=== PATIENT | female | born 1960 | race Caucasian/White ===

== ENCOUNTER → 2016-10-30 | Outpatient (CLI) | payer BC ==
--- NOTE | 2016-10-30 11:23 | Diagnostic Imaging Report ---
INDICATION: Left hand injury with swelling. FINDINGS: AP, oblique and lateral views of the left hand are obtained. No acute fracture or malalignment is identified. There is mild subluxation of the first metacarpophalangeal joint may be due to ligamentous laxity. There is no evidence of abnormal lytic or sclerotic focus. No definite erosion is seen. IMPRESSION: No acute abnormality is identified. Subluxation at the first metacarpophalangeal joint may be due to ligamentous instability. Dictated by: Dictated on workstation # [id number]
== END ==
LOC: RAD 09:46
PROVIDERS: ATTEND Family Medicine
DX: M79.642 Pain in left hand (principal)
CPT/HCPCS: 73130

== ENCOUNTER → 2022-11-03 | Outpatient (CLI) | payer BC, OTHER ==
--- NOTE | 2022-11-03 11:09 | Diagnostic Imaging Report ---
PROCEDURE: MRI lumbar spine. TECHNIQUE: Multiplanar, multisequence MRI of the lumbar spine was performed without contrast. INDICATION: Back pain and right buttock pain EXAMINATION: Lumbar spine MRI without contrast 11/03/2012 FINDINGS: Grade 1 anterolisthesis noted at L4-L5. Remaining alignment is maintained. Tip of the conus unremarkable in appearance and location. L1-L2: There is bilateral facet and omentum flavum hypertrophy. There is no central stenosis. There is moderate bilateral neural foraminal narrowing. L2-L3: There is minimal broad-based bulging and disc material. There is bilateral facet and ligament flavum hypertrophy. There is mild central narrowing. There is moderate to severe bilateral neural foraminal stenosis. L3-L4: There is disc desiccation with a mild broad-based bulging disc. There is bilateral facet and ligamentum flavum hypertrophy. There is no significant central stenosis however mild left lateral recess narrowing is noted. There is severe bilateral neural foraminal narrowing L4-L5: There is intervertebral disc space narrowing and disc desiccation. There is bilateral facet and ligamentum flavum hypertrophy. There is a left paracentral broad-based bulging disc. Findings cause near severe central stenosis with marked narrowing of the lateral recesses left worse than right. There is severe bilateral neural foraminal stenosis right worse than left. L5-S1: There is intervertebral disc space narrowing and disc desiccation. There is bilateral facet and ligamentum flavum hypertrophy. There is a broad-based bulging disc containing an annular tear. Cystic changes posterior to bilateral facets consistent with synovial cyst. Findings cause moderate central stenosis with narrowing of the lateral recesses bilaterally. There is severe bilateral neural foraminal stenosis. There is focal edema extending along the posterior superior endplate at L5 which extends into the adjacent pedicles and facets likely on a degenerative basis. Visualized intra-abdominal structures unremarkable for acute abnormality. IMPRESSION: 1. Multilevel degenerative findings as detailed above causing near severe central stenosis at the L4-L5 level with moderate central stenosis at L5-S1. Multilevel moderate to severe neural foraminal narrowing noted. See above discussion for detailed description of each level. Dictated by: Dictated on workstation # [id number]
== END ==
LOC: RAD 08:59
PROVIDERS: ATTEND Family Medicine
DX: M54.17 Radiculopathy, lumbosacral region (principal); M48.07 Spinal stenosis, lumbosacral region; M89.38 Hypertrophy of bone, other site; M48.061 Spinal stenosis, lumbar region without neurogenic claudication; M24.28 Disorder of ligament, vertebrae; M51.36 Other intervertebral disc degeneration, lumbar region
CPT/HCPCS: 72148

== ENCOUNTER 2023-08-06 09:33 | Emergency (ER) | payer OTHER ==
[~2023-08-06] VITALS: Ht 152 cm; Wt 51.0 kg
[2023-08-06 09:56] LABS: BASOPHILS # (AUTO) 0.1 10^3/uL (0.0-0.1); BASOPHILS % (AUTO) 1 % (0-10); EOSINOPHILS # (AUTO) 0.2 10^3/uL (0.0-0.3); EOSINOPHILS % (AUTO) 2 % (0-10); HEMATOCRIT 44 % (35-52); LYMPHOCYTES # (AUTO) 3.5 10^3/uL (1.0-4.0); LYMPHOCYTES % (AUTO) 32 % (12-44); MEAN CORPUSCULAR HEMOGLOBIN 33 pg (25-34); MEAN CORPUSCULAR HGB CONC 34 g/dL (32-36); MEAN CORPUSCULAR VOLUME 95 fL (80-99); MEAN PLATELET VOLUME 10.1 fL (9.0-12.2); MONOCYTES # (AUTO) 0.7 10^3/uL (0.0-1.0); MONOCYTES % (AUTO) 7 % (0-12); NEUTROPHILS # (AUTO) 6.5 10^3/uL (1.8-7.8); NEUTROPHILS % (AUTO) 59 % (42-75); PLATELET COUNT 288 10^3/uL (130-400); WHITE BLOOD COUNT 11.1 10^3/uL (4.3-11.0)
[2023-08-06] MEDS ORDERED: HOLD METFORMIN - RECEIVED CONTRAST 20 ML VIAL IV SCH (10:00)
[2023-08-06] MEDS ORDERED: NS 100 ML (IVPB) BAG IV ONE (10:00)
[2023-08-06] MEDS ORDERED: IOHEXOL 350 MG/ML 100 ML (OMNIPAQUE 350) VIAL IV ONE (10:00)
[2023-08-06 10:07] LABS: ALBUMIN 4.6 GM/DL (3.2-4.5)
--- NOTE | 2023-08-06 10:07 | Diagnostic Imaging Report ---
INDICATION: Hypertension. FINDINGS: The heart size, mediastinal configuration, and pulmonary vascularity are within normal limits. There is no pleural effusion, pneumothorax, or pneumonia. The osseous structures are unremarkable. IMPRESSION: No acute cardiopulmonary abnormality. Dictated by: Dictated on workstation # [id number]
[2023-08-06 10:08] LABS: CHLORIDE 108 MMOL/L (98-107); INR 0.9 (0.8-1.4); POTASSIUM 3.5 MMOL/L (3.6-5.0); PROTHROMBIN TIME PATIENT 12.7 SEC (12.2-14.7); SODIUM 140 MMOL/L (135-145)
[2023-08-06 10:10] LABS: GLUCOSE 103 MG/DL (70-105); TOTAL PROTEIN 8.1 GM/DL (6.4-8.2)
[2023-08-06 10:11] LABS: CARBON DIOXIDE 21 MMOL/L (21-32); FIBRIN DEGRADATION PRODUCTS 0.4 UG/ML (0.00-0.49)
[2023-08-06 10:12] LABS: BILIRUBIN,TOTAL 0.6 MG/DL (0.1-1.0)
[2023-08-06 10:14] LABS: ALKALINE PHOSPHATASE 94 U/L (40-136); CREATININE SERUM 0.77 MG/DL (0.60-1.30); GFR ESTIMATED 88
[2023-08-06 10:15] LABS: BUN/CREATININE RATIO 8
[2023-08-06 10:17] LABS: ALANINE AMINOTRANSFERASE 16 U/L (0-55)
--- NOTE | 2023-08-06 10:21 | Diagnostic Imaging Report ---
CLINICAL INDICATION: Patient with right-sided weakness and leaning and headache and hypertension. EXAM: Axial CT scan of the brain performed without IV contrast. High-resolution axial CT brain images with sagittal and coronal reformations were also created. Auto Exposure Controls were utilized during the CT exam to meet ALARA standards for radiation dose reduction. COMPARISON: Head CT without contrast dated 08/06/2023. FINDINGS: There is no evidence of acute cerebral infarct, intracranial hemorrhage, or gross mass effect. There is no dense vessel sign. The brain parenchymal volume appears appropriate for patient's age. Stable small area of low-density involving the right frontal lobe subcortical white matter which may be related to chronic ischemic changes. There is normal floyd-white matter distinction. There is no significant midline shift or herniation. There is no evidence of hydrocephalus. The basal cisterns are unremarkable. The skull, extracranial soft tissue, and orbits are unremarkable. The paranasal sinuses are unremarkable. Temporal bones show no significant abnormality. IMPRESSION: Stable CT scan of the brain with no interval evidence of acute intracranial process. There is no dense vessel sign. Results of this report discussed with Dr. Adan Hummel via the telephone on 08/06/2023 at 1015 hours. Dictated by: Dictated on workstation # [id number]
--- NOTE | 2023-08-06 10:25 | Diagnostic Imaging Report ---
Clinical indication: Patient with right-sided weakness remaining, headache and hypertension. Exams: 1: Head CT with and without IV contrast. Auto Exposure Controls were utilized during the CT exam to meet ALARA standards for radiation dose reduction. 2: CT angiogram of the head and neck performed with 100 cc of Omnipaque 350 IV contrast. Sagittal and coronal MIP reformations were created for better visualization of vascular anatomy. CT angiogram was post-processed using RAPID LVO detection to include quantitative measurements of cerebral blood flow and automated results notification to the stroke and/or neurointerventional team. Comparison: Head CT without contrast dated 08/06/2023. Findings: Head CT: Stable appearance of the brain parenchyma with no interval acute intracranial process. There is no intracranial hemorrhage and there is no abnormal IV contrast enhancement. Stable small vessel ischemic disease. The remainder of this exam shows no significant interval change compared to the prior study of comparison. CT ANGIOGRAM: There is dense contrast bolus within left subclavian vein, innominate vein and superior vena cava which causes streak artifact obscuring portions of the aortic arch and proximal great vessels. Three-vessel aortic arch is seen. The brachiocephalic artery and bilateral subclavian arteries are patent. The right common carotid artery, cervical right ICA and right ECA are patent. The left common carotid artery, left ECA and cervical left ICA are patent. The petrous, cavernous, and supraclinoid ICA are patent. The bilateral ACAs and distal branches are patent. The bilateral ACAs and distal branches are patent. The bilateral MCAs and distal branches are patent. The bilateral cervical vertebral arteries are patent. The intradural bilateral vertebral arteries and bilateral membership sales representative and distal branches are patent. Bilateral superior cerebellar arteries, basilar artery, and intradural vertebral arteries are patent. The bilateral cervical vertebral arteries are patent and codominant. Dural venous sinuses are patent. Centrilobular emphysema is seen. There are multiple subcentimeter right thyroid lobe nodules. There is a 6 mm nodule involving the right thyroid lobe. Otherwise remainder of the neck soft tissue structures are unremarkable. IMPRESSION: 1: Stable CT scan of the brain with no interval evidence of acute intracranial process. 2: CT angiogram of the [place] and neck shows no large vessel occlusion or intravascular thrombus. There is no significant stenosis, aneurysm, or vascular malformation. 3: There is a 6 mm nodule involving the right thyroid lobe. Nonemergent thyroid ultrasound is suggested for further evaluation. Results of this report were discussed with Dr. Adan Hummel via the telephone on 08/06/2023 at 1015 hours. Dictated by: Dictated on workstation # [id number]
--- NOTE | 2023-08-06 10:28 | ED Neurological Problem ---
General Chief Complaint: Neuro-Stroke Like Symptoms Stated Complaint: STROKE-LIKE SYMPTOMS Nursing Triage Note: PT AMB TO [facility] WITH C/O STROKE LIKE SYMPTOMS THIS MORNING. PT HAS NOTICED HER BP ELEVATED THE LAST FEW DAYS, [place], R SIDE WEAKNESS AND FALLING TO THE RIGHT THIS MORNING. PT DENIES ALL SYMPTOMS ON ARRIVAL Source: patient Exam Limitations: no limitations History of Present Illness Date Seen by Provider: Aug 06, 2023 Time Seen by Provider: 09:38 Initial Comments This is a 62-year-old woman presents to the emergency room by private vehicle with complaints of slurred speech and right-sided weakness that was noted around 0830. Her last known well time was approximately 0300 when she laid down for bed. She got up at some point between 0400 and 0430 and thought herself to be normal at that time. However, since she was not speaking with anyone at that time and one of her complaints was slurred speech, 0300 should be considered her last known well time. She is accompanied by family on arrival. She is without neurologic deficits on arrival and ambulates into the ER without difficulty on her own power. She reports problems with recent headaches and hypertension as well as some tingling in her distal extremities. She has had hypertensive blood pressure measurements at home which have been ranging from 131/85 up to 191/107. She then had a more marked blood pressure of 210/117 this morning. She has had a platelet with Dr. Gustafson later this morning for her hypertension. She has history of cervical and lumbar spinal stenosis with MRI studies on file in our record. She has no history of stroke. She is a smoker and admits to occasional marijuana use. She denies any alcohol use. Allergies and Home Medications Allergies Coded Allergies: No Known Drug Allergies (Unverified , 08/06/23) Patient Home Medication List Home Medication List Reviewed: Yes Amlodipine Besylate (Amlodipine Besylate) 5 Mg Tablet, 5 MG PO DAILY Prescribed by: ADAN HUMMEL on 08/06/23 1259 Aspirin (Aspirin EC) 81 Mg Tablet.dr, 81 MG PO DAILY Prescribed by: ADAN HUMMEL on 08/06/23 1259 Clopidogrel Bisulfate (Plavix) 75 Mg Tablet, 75 MG PO DAILY Prescribed by: ADAN HUMMEL on 08/06/23 1259 Review of Systems Review of Systems Constitutional: no symptoms reported Eyes: No Symptoms Reported Ears, Nose, Mouth, Throat: no symptoms reported Respiratory: no symptoms reported Cardiovascular: no symptoms reported Gastrointestinal: no symptoms reported Genitourinary: no symptoms reported : No Musculoskeletal: no symptoms reported Skin: no symptoms reported Psychiatric/Neurological: See HPI Endocrine: No Symptoms Reported Hematologic/Lymphatic: No Symptoms Reported Past Xhjkizs-Ldhzai-Zifiqn Hx Patient Social History Tobacco Use?: Yes Tobacco type used: Cigarettes Substance use?: Yes Substance type: Marijuana Alcohol Use?: No Pt feels they are or have been: No Past Medical History Surgery/Hospitalization HX: [facility] Surgeries: Yes Gallbladder Respiratory: No Cardiac: Yes Hypertension Neurological: Yes (Lumbar and cervical spinal stenosis) Genitourinary: No Gastrointestinal: No Musculoskeletal: Yes (Degenerative disc disease, lumbar and cervical spinal stenosis) Endocrine: No HEENT: No Cancer: No Psychosocial: No Integumentary: Yes (Lichen planus) Physical Exam Vital Signs Vital Signs - First Documented 08/06/23 09:38 Temp 37.0 Pulse 116 Resp 20 B/P (MAP) 216/121 (152) Pulse Ox 95 O2 Delivery Room Air Capillary Refill : Height, Weight, BMI Height: '" Weight: lbs. oz. kg; 22.00 BMI Method: General Appearance: WD/WN, no apparent distress, thin HEENT: PERRL/EOMI, normal ENT inspection Neck: normal inspection Respiratory: lungs clear, normal breath sounds, no respiratory distress Cardiovascular: no edema, no murmur, tachycardia (Regular) Gastrointestinal: non tender, soft; No distended Extremities: non-tender, normal inspection, no pedal edema Neurologic/Psychiatric: lead sprinkler II-XII nml as tested, no motor/sensory deficits, alert, normal mood/affect, oriented x 3 [place] Nerves: normal hearing, normal speech Coordination/Gait: normal gait Motor/Sensory: no motor deficit, no sensory deficit Skin: normal color, warm/dry Stroke Onset of Symptoms Date of Onset of Symptoms: Aug 06, 2023 Time of Symptom Onset: 08:30 (LKWT 03:00) NIH Stroke Scale Assessment Level of Consciousness: 0=Alert (0), Level of Consciousness-Questions: 0=Answers both month/age (0), LOC Commands: 0=Performs both tasks (0), Visual Cisse: 0=No visual loss (0), Facial Movement (Facial Paresis): 0=Normal symmetrical mnt (0), Motor Function-Arms Right: 0=No drift (0), Motor Function-Arms Left: 0=No drift (0), Motor Function-Legs Right: 0=No drift (0), Motor Function-Legs Left: 0=No drift (0), Limb Ataxia: 0=Absent (0), Sensory: 0=Normal:no loss (0), Best Language: 0=No aphasia (0), Dysarthria: 0=Normal (0), Extinction & Inattention: 0=No abnormality (0), Total: 0 Progress/Results/Core Measures Results/Orders Lab Results Laboratory Tests Test 08/06/23 09:43 08/06/23 09:45 08/06/23 10:30 Range/Units White Blood Count 11.1 H 4.3-11.0 10^3/uL Red Blood Count 4.62 3.80-5.11 10^6/uL Hemoglobin 15.0 11.5-16.0 g/dL Hematocrit 44 35-52 % Mean Corpuscular Volume 95 80-99 fL Mean Corpuscular Hemoglobin 33 25-34 pg Mean Corpuscular Hemoglobin Concent 34 32-36 g/dL Red Cell Distribution Width 14.0 10.0-14.5 % Platelet Count 288 130-400 10^3/uL Mean Platelet Volume 10.1 9.0-12.2 fL Immature Granulocyte % (Auto) 0 % Neutrophils (%) (Auto) 59 42-75 % Lymphocytes (%) (Auto) 32 12-44 % Monocytes (%) (Auto) 7 0-12 % Eosinophils (%) (Auto) 2 0-10 % Basophils (%) (Auto) 1 0-10 % Neutrophils # (Auto) 6.5 1.8-7.8 10^3/uL Lymphocytes # (Auto) 3.5 1.0-4.0 10^3/uL Monocytes # (Auto) 0.7 0.0-1.0 10^3/uL Eosinophils # (Auto) 0.2 0.0-0.3 10^3/uL Basophils # (Auto) 0.1 0.0-0.1 10^3/uL Immature Granulocyte # (Auto) 0.0 0.0-0.1 10^3/uL Prothrombin Time 12.7 12.2-14.7 SEC INR Comment 0.9 0.8-1.4 Activated Partial Thromboplast Time 34 24-35 SEC D-Dimer 0.40 0.00-0.49 UG/ML Sodium Level 140 135-145 MMOL/L Potassium Level 3.5 L 3.6-5.0 MMOL/L Chloride Level 108 H 98-107 MMOL/L Carbon Dioxide Level 21 21-32 MMOL/L Anion Gap 11 5-14 MMOL/L Blood Urea Nitrogen 6 L 7-18 MG/DL Creatinine 0.77 0.60-1.30 MG/DL Estimat Glomerular Filtration Rate 88 BUN/Creatinine Ratio 8 Glucose Level 103 70-105 MG/DL Calcium Level 10.0 8.5-10.1 MG/DL Corrected Calcium 8.5-10.1 MG/DL Total Bilirubin 0.6 0.1-1.0 MG/DL Aspartate Amino Transf (AST/SGOT) 21 5-34 U/L Alanine Aminotransferase (ALT/SGPT) 16 0-55 U/L Alkaline Phosphatase 94 40-136 U/L Troponin I < 0.028 <0.028 NG/ML Total Protein 8.1 6.4-8.2 GM/DL Albumin 4.6 H 3.2-4.5 GM/DL Thyroid Stimulating Hormone (TSH) 1.30 0.35-4.94 UIU/ML Free Thyroxine 1.20 0.70-1.48 NG/DL Glucometer 104 70-110 MG/DL Urine Color YELLOW Urine Clarity CLEAR Urine pH 7.0 5-9 Urine Specific [place] 1.010 L 1.016-1.022 Urine Protein NEGATIVE NEGATIVE Urine Glucose (UA) NEGATIVE NEGATIVE Urine Ketones NEGATIVE NEGATIVE Urine Nitrite NEGATIVE NEGATIVE Urine Bilirubin NEGATIVE NEGATIVE Urine Urobilinogen 0.2 < = 1.0 MG/DL Urine Leukocyte Esterase NEGATIVE NEGATIVE Urine RBC (Auto) TRACE H NEGATIVE Urine RBC NONE /HPF Urine WBC NONE /HPF Urine Squamous Epithelial Cells RARE /HPF Urine Crystals NONE /LPF Urine Bacteria NEGATIVE /HPF Urine Casts NONE /LPF Urine Mucus NEGATIVE /LPF Urine Culture Indicated NO Urine Opiates Screen NEGATIVE NEGATIVE Urine Oxycodone Screen NEGATIVE NEGATIVE Urine Methadone Screen NEGATIVE NEGATIVE Urine Propoxyphene Screen NEGATIVE NEGATIVE Urine Barbiturates Screen NEGATIVE NEGATIVE Ur Tricyclic Antidepressants Screen NEGATIVE NEGATIVE Urine Phencyclidine Screen NEGATIVE NEGATIVE Urine Amphetamines Screen NEGATIVE NEGATIVE Urine Methamphetamines Screen NEGATIVE NEGATIVE Urine Benzodiazepines Screen POSITIVE H NEGATIVE Urine Cocaine Screen NEGATIVE NEGATIVE Urine Cannabinoids Screen POSITIVE H NEGATIVE My Orders Orders - ADAN TURCIOS MD Ekg Tracing (08/06/23 09:37) Cbc And Automated Diff (08/06/23 09:46) Protime With Inr (08/06/23 09:46) Partial Thromboplastin Time (08/06/23 09:46) Comprehensive Metabolic Panel (08/06/23:46) Fibrin Degradation Products (08/06/23:46) Troponin I [place] (08/06/23 09:46) Ua Culture If Indicated (08/06/23 09:46) Chest 1 View, Ap/Pa Only (08/06/23:46) Accucheck Stat ONCE (08/06/23 09:46) Ed Iv/Invasive Line Start (08/06/23 09:46) Ed Iv/Invasive Line Start (08/06/23 09:46) Vital Signs Stroke Patient Q15M (08/06/23 09:46) Ct Head Wo-R/O Stroke (08/06/23 09:46) O2 (08/06/23 09:46) Monitor-Rhythm Ecg Trace Only (08/06/23 09:46) Dysphagia Screening Tool Q10MX1 (08/06/23 09:46) Post Thrombolytic Adminstratio (08/06/23 09:46) Ct Angio Head/Neck (08/06/23 09:48) Iohexol Injection (Omnipaque 350 Mg/Ml 1 (08/06/23 10:00) Received Contrast (Hold Metformin- Contr (08/06/23 10:00) Ns (Ivpb) 100 Ml (Sodium Chloride 0.9% 1 (08/06/23 10:00) Mri Brain W/O Contrast (08/06/23 10:21) Drug Screen Stat (Urine) (08/06/23 10:34) Thyroid Stimulating Hormone (08/06/23 10:36) Free T4 (Free Thyroxine) (08/06/23 10:36) Clopidogrel Tablet (Clopidogrel Tablet) (08/06/23 13:00) Aspirin Enteric Coated Tablet (Ecotrin T (08/06/23 13:00) Amlodipine Tablet (Amlodipine Tablet) (08/06/23 13:00) Medications Given in ED Vital Signs/I&O 08/06/23 08/06/23 09:38 13:05 Temp 37.0 Pulse 116 84 Resp 20 18 B/P (MAP) 216/121 (152) 190/120 Pulse Ox 95 97 O2 Delivery Room Air Blood Pressure Mean: 152 FSBG Bedside Testing Finger Stick Blood Glucose: 104 Blood Glucose Action Taken: PROVIDER NOTIFIED Progress Progress Note #1: Time: 10:31 Progress Note Patient was promptly interviewed and examined upon arrival. Although she was not currently exhibiting neurologic symptoms aside from headache, she did have an event this morning concerning for TIA. Stroke activation was paged. I accompanied patient to CT scan and immediately reviewed noncontrast CT imaging. No acute abnormalities were appreciated. We proceeded with CT angiogram of the head and neck. No acute abnormalities were appreciated on CT angiogram by my interpretation. I also discussed with the radiologist and reviewed radiologist's report finding no critical stenoses or occlusion. Patient remains hypertensive with a present blood pressure of 168/111. Until determination of stroke has been made with MRI, I am not treating the hypertension. If stroke is found on MRI, permissive hypertension will be monitored. If MRI is negative, we will consider treating with antihypertensives for possible malignant hypertens ion. Labs have all been reviewed and interpreted by me. Labs were clinically unremarkable by my interpretation including CBC, CMP, troponin, D-dimer, and coagulation panel. Progress Note #2: Progress Note MRI demonstrated no acute abnormalities or pathologies to explain the symptoms. Event likely represented either TIA or malignant hypertension. I discuss with stroke neurologist at [facility]. ABCD2 score was 3. Admission to finish stroke evaluation was recommend. Dual antiplatelet therapy recommended for 3 weeks. Patient declined admission and acknowledged leaving AMA places her at greater risk for and disability. Rx provided. Patient signed AMA paper. See discharge instructions for further discussion. Initial ECG Impression Date: Aug 06, 2023 Initial ECG Impression Time: 09:44 Initial ECG Rate: 94 Initial ECG Rhythm: S.Tach Comment Borderline sinus tachycardia with no ST elevation or depression. No significant abnormal intervals. Possible left axis deviation or LVH. Diagnostic Imaging Diagonstic Imaging: Xray Plain Films/CT/US/NM/MRI: chest Comments NAME: RICKYPiedadANDREA D MED REC#: [id number] PT STATUS: REG ER : 1960 PHYSICIAN: ADAN TURCIOS MD ADMIT DATE: 08/06/23/ER Signed Date of Exam:08/06/23 CHEST 1 VIEW, AP/PA ONLY INDICATION: Hypertension. FINDINGS: The heart size, mediastinal configuration, and pulmonary vascularity are within normal limits. There is no pleural effusion, pneumothorax, or pneumonia. The osseous structures are unremarkable. IMPRESSION: No acute cardiopulmonary abnormality. Dictated by: Dictated on workstation # [id number] Dict: 08/06/23 1005 Trans: 08/06/23 1009 PERRY [id number] Interpreted by: SABINE DONALDSON MD Electronically signed by: SABINE DONALDSON MD 08/06/23 1009 Diagonstic Imaging: CT Plain Films/CT/US/NM/MRI: head Comments NAME: ANDREA WILKERSON [facility] REC#: [id number] PT STATUS: REG ER : 1960 PHYSICIAN: ADAN TURCIOS MD ADMIT DATE: 08/06/23/ER Draft Date of Exam:08/06/23 CT HEAD WO-R/O STROKE CLINICAL INDICATION: Patient with right-sided weakness and leaning and headache and hypertension. EXAM: Axial CT scan of the brain performed without IV contrast. High-resolution axial CT brain images with sagittal and coronal reformations were also created. Auto Exposure Controls were utilized during the CT exam to meet ALARA standards for radiation dose reduction. COMPARISON: Head CT without contrast dated 08/06/2023. FINDINGS: There is no evidence of acute cerebral infarct, intracranial hemorrhage, or gross mass effect. There is no dense vessel sign. The brain parenchymal volume appears appropriate for patient's age. Stable small area of low-density involving the right frontal lobe subcortical white matter which may be related to chronic ischemic changes. There is normal floyd-white matter distinction. There is no significant midline shift or herniation. There is no evidence of hydrocephalus. The basal cisterns are unremarkable. The skull, extracranial soft tissue, and orbits are unremarkable. The paranasal sinuses are unremarkable. Temporal bones show no significant abnormality. IMPRESSION: Stable CT scan of the brain with no interval evidence of acute intracranial process. There is no dense vessel sign. Results of this report discussed with Dr. Adan Hummel via the telephone on 08/06/2023 at 1015 hours. Dictated on workstation # [id number] Dict: 08/06/23 1006 Trans: 08/06/23 1021 [id number] Interpreted by: NARINDER JACK MD Diagonstic Imaging: CT Plain Films/CT/US/NM/MRI: other (Angiogram head and neck) Comments NAME: ANDREA WILKERSON [facility] REC#: [id number] PT STATUS: REG ER : 1960 PHYSICIAN: ADAN TURCIOS MD ADMIT DATE: 08/06/23/ER Draft Date of Exam:08/06/23 CT ANGIO HEAD/NECK Clinical indication: Patient with right-sided weakness remaining, headache and hypertension. Exams: 1: Head CT with and without IV contrast. Auto Exposure Controls were utilized during the CT exam to meet ALARA standards for radiation dose reduction. 2: CT angiogram of the head and neck performed with 100 cc of Omnipaque 350 IV contrast. Sagittal and coronal MIP reformations were created for better visualization of vascular anatomy. CT angiogram was post-processed using RAPID LVO detection to include quantitative measurements of cerebral blood flow and automated results notification to the stroke and/or neurointerventional team. Comparison: Head CT without contrast dated 08/06/2023. Findings: Head CT: Stable appearance of the brain parenchyma with no interval acute intracranial process. There is no intracranial hemorrhage and there is no abnormal IV contrast enhancement. Stable small vessel ischemic disease. The remainder of this exam shows no significant interval change compared to the prior study of comparison. CT ANGIOGRAM: There is dense contrast bolus within left subclavian vein, innominate vein and superior vena cava which causes streak artifact obscuring portions of the aortic arch and proximal great vessels. Three-vessel aortic arch is seen. The brachiocephalic artery and bilateral subclavian arteries are patent. The right common carotid artery, cervical right ICA and right ECA are patent. The left common carotid artery, left ECA and cervical left ICA are patent. The petrous, cavernous, and supraclinoid ICA are patent. The bilateral ACAs and distal branches are patent. The bilateral ACAs and distal branches are patent. The bilateral MCAs and distal branches are patent. The bilateral cervical vertebral arteries are patent. The intradural bilateral vertebral arteries and bilateral [place] tender and distal branches are patent. Bilateral superior cerebellar arteries, basilar artery, and intradural vertebral arteries are patent. The bilateral cervical vertebral arteries are patent and codominant. Dural venous sinuses are patent. Centrilobular emphysema is seen. There are multiple subcentimeter right thyroid lobe nodules. There is a 6 mm nodule involving the right thyroid lobe. Otherwise remainder of the neck soft tissue structures are unremarkable. IMPRESSION: 1: Stable CT scan of the brain with no interval evidence of acute intracranial process. 2: CT angiogram of the [place] and neck shows no large vessel occlusion or intravascular thrombus. There is no significant stenosis, aneurysm, or vascular malformation. 3: There is a 6 mm nodule involving the right thyroid lobe. Nonemergent thyroid ultrasound is suggested for further evaluation. Results of this report were discussed with Dr. Adan Hummel via the telephone on 08/06/2023 at 1015 hours. Dictated on workstation # [id number] Dict: 08/06/23 1009 Trans: 08/06/23 1025 [id number] [id number] Interpreted by: NARINDER JACK MD Diagonstic Imaging: MRI Plain Films/CT/US/NM/MRI: head Comments NAME: ANDREA WILKERSON [facility] REC#: [id number] PT STATUS: REG ER : 1960 PHYSICIAN: ADAN TURCIOS MD ADMIT DATE: 08/06/23/ER Signed Date of Exam:08/06/23 MRI BRAIN W/O CONTRAST CLINICAL INDICATION: Patient with stroke-like symptoms. Patient with right-sided weakness, headache, and hypertension. EXAM: MRI of the brain performed without IV contrast. Sequences include axial DWI, ADC map, axial T1, axial T2, axial FLAIR, axial gradient echo, and sagittal T1. COMPARISON: CT angiogram of the head/neck dated 08/06/2023. FINDINGS: There is no evidence of acute cerebral infarct, intracranial hemorrhage, or gross mass effect. There is a small area of T2 shine-through involving the posterior left frontal lobe dow radiata region. There is no evidence of diffusion restriction seen on this exam. There are multiple focal and patchy areas of high T2 signal white matter changes involving both cerebral hemispheres, periventricular regions, and robles, likely related to chronic small vessel ischemic disease. The brain parenchymal volume appears appropriate for patient's age. There is normal floyd-white matter distinction. There is no significant midline shift or herniation. The visualized [place] vascular structures are unremarkable. The pituitary gland, sella, and suprasellar regions are unremarkable as visualized. There is no evidence of hydrocephalus. The basal cisterns are unremarkable. The skull, extracranial soft tissue, and orbits are unremarkable. The paranasal sinuses are unremarkable. Temporal bones show no significant abnormality. IMPRESSION: 1: There is no evidence of acute intracranial process. 2: There are age-related brain parenchymal changes including chronic small vessel ischemic disease. Dictated by: Dictated on workstation # [id number] Dict: 08/06/23 1140 Trans: 08/06/23 1213 [id number] Interpreted by: NARINDER JACK MD Electronically signed by: NARINDER JACK MD 08/06/[address] Read Date: Aug 06, 2023 CT Read Time: 09:41 CT Results/Progress Notes CT was immediately read by me at 0941. No acute abnormalities were appreciated. Report was later received by the radiologist confirming no acute findings. Departure Impression Primary Impression: Hypertensive emergency Additional Impressions: Right sided weakness Left against medical advice Slurred speech Disposition: 07 AGAINST MEDICAL ADVICE Condition: Against Medical Advice Departure-Patient Inst. Decision time for Depature: 12:54 Referrals: ISAIAS GUSTAFSON MD (PCP/Family) Primary Care Physician Patient Instructions: Leaving Against Medical Advice, Malignant Hypertension, Transient Ischemic Attack (DC) Add. Discharge Instructions: It is unclear if you had strokelike symptoms due to severe high blood pressure or if you had severe high blood pressure in response to a TIA (transient ischemic attack). Admission to the hospital was recommended. Declining admission to the hospital places you at risk for more severe health consequences should your symptoms worsen. Consequences of declining admission could include or permanent disability. Avoid things that could worsen your blood pressure such as excessive salt, unnecessarily stressful situations, decongestant medications, excessive ca ffeine, diet pills, medications for ADHD, smoking, other nicotine, etc. Work toward quitting smoking with the assistance of your doctor. You may take Tylenol (acetaminophen) up to 650 mg every 6 hours as needed. Avoid use of NSAID medications such as ibuprofen and naproxen while taking aspirin and Plavix. Start your aspirin and Plavix (clopidogrel) tomorrow along with your blood p ressure pill, Norvasc (amlodipine). Continue both aspirin and Plavix for 3 weeks. Then continue aspirin indefinitely unless otherwise instructed by your doctor. Please call Dr. Gustafson to reschedule your appointment as soon as possible. You need to further work-up for your symptoms which would include an echocardiogram, cholesterol screening, etc. You should also discuss high-dose statin therapy for cholesterol reduction with Dr. Gustafson. You may continue monitoring your blood pressure at home. Checking her blood pressure 2-4 times a day should be plenty. Return to the emergency room if you have worsening symptoms, if you develop any further strokelike symptoms, or if you change your mind about admission and observation. All discharge instructions reviewed with patient and/or family. Voiced understanding. Scripts Amlodipine Besylate (Amlodipine Besylate) 5 Mg Tablet 5 MG PO DAILY, #30 TAB Prov: ADAN TURCIOS MD 08/06/23 Aspirin (Aspirin EC) 81 Mg Tablet. 81 MG PO DAILY, #30 TAB Prov: ADAN TURCIOS MD 08/06/23 Clopidogrel Bisulfate (Plavix) 75 Mg Tablet 75 MG PO DAILY, #20 TAB Prov: ADAN TURCIOS MD 08/06/23 Copy Copies To 1: ISAIAS GUSTAFSON MD, JOSHUA T MD Aug 06, 2023 10:28
[2023-08-06 10:44] LABS: CLARITY,URINE CLEAR; COLOR,URINE YELLOW
[2023-08-06 10:45] LABS: BACTERIA,URINE NEGATIVE /HPF; BILIRUBIN,URINE NEGATIVE (NEGATIVE); GLUCOSE, URINE (UA) NEGATIVE (NEGATIVE); KETONES,URINE NEGATIVE (NEGATIVE); LEUKOCYTE ESTERASE ,URINE NEGATIVE (NEGATIVE); NITRITE,URINE NEGATIVE (NEGATIVE); PROTEIN,URINE NEGATIVE (NEGATIVE); SQUAMOUS EPITHELIAL CELL,UR RARE /HPF
[2023-08-06 10:55] LABS: AMPHETAMINE SCREEN, URINE NEGATIVE (NEGATIVE); BARBITURATE SCREEN URINE NEGATIVE (NEGATIVE); CANNABINOID SCREEN, URINE POSITIVE (NEGATIVE); COCAINE SCREEN URINE NEGATIVE (NEGATIVE); METHADONE STAT NEGATIVE (NEGATIVE); OPIATE SCREEN URINE NEGATIVE (NEGATIVE); OXYCODONE STAT NEGATIVE (NEGATIVE); PROPOXYPHENE STAT NEGATIVE (NEGATIVE); TRICYCLIC ANTIDEPRESSANTS SCRE NEGATIVE (NEGATIVE)
[2023-08-06 11:28] LABS: FREE T4 (FREE THYROXINE) 1.2 NG/DL (0.70-1.48)
--- NOTE | 2023-08-06 11:48 | Diagnostic Imaging Report ---
CLINICAL INDICATION: Patient with stroke-like symptoms. Patient with right-sided weakness, headache, and hypertension. EXAM: MRI of the brain performed without IV contrast. Sequences include axial DWI, ADC map, axial T1, axial T2, axial FLAIR, axial gradient echo, and sagittal T1. COMPARISON: CT angiogram of the head/neck dated 08/06/2023. FINDINGS: There is no evidence of acute cerebral infarct, intracranial hemorrhage, or gross mass effect. There is a small area of T2 shine-through involving the posterior left frontal lobe dow radiata region. There is no evidence of diffusion restriction seen on this exam. There are multiple focal and patchy areas of high T2 signal white matter changes involving both cerebral hemispheres, periventricular regions, and robles, likely related to chronic small vessel ischemic disease. The brain parenchymal volume appears appropriate for patient's age. There is normal floyd-white matter distinction. There is no significant midline shift or herniation. The visualized [place] vascular structures are unremarkable. The pituitary gland, sella, and suprasellar regions are unremarkable as visualized. There is no evidence of hydrocephalus. The basal cisterns are unremarkable. The skull, extracranial soft tissue, and orbits are unremarkable. The paranasal sinuses are unremarkable. Temporal bones show no significant abnormality. IMPRESSION: 1: There is no evidence of acute intracranial process. 2: There are age-related brain parenchymal changes including chronic small vessel ischemic disease. Dictated by: Dictated on workstation # [id number]
[2023-08-06] MEDS ORDERED: ASPI-1238 PO (12:59)
[2023-08-06] MEDS ORDERED: AMLO-250 PO (12:59)
[2023-08-06] MEDS ORDERED: CLOP-31 PO (12:59)
[2023-08-06] MEDS ORDERED: ASPIRIN enteric coated 81MG TABLET PO ONE (13:00)
[2023-08-06] MEDS ORDERED: amLODIPine 5 MG TABLET PO ONE (13:00)
[2023-08-06] MEDS ORDERED: CLOPIDOGREL 300 MG TABLET PO ONE (13:00)
[2023-08-06 13:05] VITALS: BP 190/120
== END 2023-08-06 13:11 | disposition left against medical advice (07) ==
LOC: EDUNIT# 09:33 → ER 09:35
DX: I16.1 Hypertensive emergency (principal); R47.81 Slurred speech; R53.1 Weakness; F17.210 Nicotine dependence, cigarettes, uncomplicated
CPT/HCPCS: 36415; 70450; 70496; 70498; 70551; 71045; 80053; 80306; 81000; 82947; 84439; 84443; 84484; 85025; 85379; 85610; 85730; 93005; 93041